=== PATIENT | female | born 1985 | race Caucasian/White ===

== ENCOUNTER 2016-06-21 20:09 | Emergency (ER) | payer BC ==
[2016-06-21] VITALS (7 sets, daily range): RESP 18
[2016-06-21] MEDS ORDERED: LACTATED RINGER'S 1000 ML INJ 1,000 ML IV SCH (20:47)
[2016-06-21] MEDS ORDERED: METOCLOPRAMIDE HCL 10 MG/2 ML VIAL IV PUSH ONE (21:00)
[2016-06-21] MEDS ORDERED: PANTOPRAZOLE SODIUM 40 MG VIAL IV PUSH ONE (21:00)
[2016-06-21] MEDS ORDERED: PROCHLORPERAZINE INJ 10 MG/2 ML VIAL IVS ONE (21:00)
[2016-06-21 22:15] LABS: BICARBONATE 21.5 MEQ/L (21.0-32.0); POTASSIUM 3.7 MEQ/L (3.5-5.1)
[2016-06-21 22:43] LABS: BLOOD, URINE NEG (NEG); COMMENT (UR) CULT NOT INDICATED; CULTURE IF INDICATED CULT NOT INDICATED; GLUCOSE,URINE TRACE mg/dL (NEG); KETONE, URINE 150 mg/dL (NEG); MUCUS URINE MANY /lpf (OCC); NITRITE,URINE NEG (NEG); PH, URINE 6.5 (5.0-8.5); SQUAMOUS EPITHELIAL CELL URINE 6 /hpf (0-5); URINE COLOR YELLOW (YELLW/STRAW)
[2016-06-21] MEDS ORDERED: VIST50CA PO (23:36)
[2016-06-21] MEDS ORDERED: REGL10TA5 PO (23:36)
--- NOTE | 2016-06-21 23:37 | PD ---
HPI Chief Complaint Nausea and vomiting intractable Date Seen: Jun 21, 2016 Travel History International Travel<30 Days: No Contact w/Intl Traveler<30Days: No History of Present Illness HPI This patient is a 30-year-old white female A1 at 8 weeks gestation presents with intractable nausea and vomiting over the last couple of days. She lives in [place] and is [place] [facility] she still with hyperemesis through this already and when she was before she had at all with her and a PICC line and hyperalimentation and and other measures during that . She was in [place] and having trouble with nausea and vomiting and they were going to put a PICC line in her then just recently but she got better with Phenergan suppositories and so may cancel that PICC line and come down here for the races and she gets here she starts to get worse. She denies vaginal bleeding abdominal pain or leakage of fluid. She had an ultrasound done in [place] that showed a viable intrauterine at the 7-8 week range Para: 1 : 3 Miscarriage: 1 History Obstetric History Obstetric History One vaginal delivery with hyperemesis during that and having hyperemesis during this Past Surgical History Narrative Surgical D&C for miscarriage Family History Family History: Negative Social History Alcohol Use: No Tobacco Use: No Substance Abuse: No Allergies-Medications (Allergen,Severity, Reaction): Coded Allergies: Bactrim (Verified Allergy, Unknown, 06/21/16) Penicillin (Verified Allergy, Unknown, 06/21/16) Uncoded Allergies: BACTRUM (Allergy, Unknown, 06/21/16) Review of Systems General / Constitutional: No: Fever, Weight Gain, Chills, Other Eyes: No: Diploplia, Blurred Vision, Visual changes, Pain, Photophobia HENT: No: Headaches, Vertigo, Lightheadedness Cardiovascular: No: Irregular Rhythm, Chest Pain or Discomfort, Palpitations, Tachycardia, Syncope, Varicosities, Edema, Cyanosis Respiratory: No: Cough, Short of Breath, Other Gastrointestinal: Nausea, Vomiting, No: Diarrhea Genitourinary: No: Decreased Urinary Output, Oliguria Musculoskeletal: No: Limited ROM, Weakness, Cramping, Edema, Pain Skin: No Rash, No Itching, No Dryness, No Lumps, No Change in Pigmentation, No Change in Nails, No Alopecia, No Lesions Neurologic: No: Weakness, Dizziness, Syncope, Focal Abnormalities, Coordination Problem, Headache, Slurred Speech, Seizures Psychiatric: No: Depression, Suicidal Ideations, Homicidal Ideation Endocrine: No: Heat Intolerance, Cold Intolerance, Polydipsia, Polyuria, Other Physical Exam Narrative GENERAL thin, well-developed patient. In mild distress from just vomiting so much SKIN: Warm and dry. HEAD: Normocephalic and atraumatic. EYES: No scleral icterus. No injection or drainage. ENT: No nasal drainage noted. Mucous membranes pink. Airway patent. NECK: Supple, trachea midline. No JVD. CARDIOVASCULAR: Regular rate and rhythm without murmurs, gallops, or rubs. RESPIRATORY: Breath sounds equal bilaterally. No accessory muscle use. BREASTS: Bilateral exam showed no masses , no retractions, no nipple discharge. ABDOMEN/GI: Abdomen soft, non-tender, bowel sounds present, no rebound, no guarding Gravid to [8-] weeks size EXTREMITIES: No cyanosis or edema. BACK: Nontender without obvious deformity. No CVA tenderness. NEUROLOGICAL: Awake and alert. Motor and sensory grossly within normal limits. Five out of 5 muscle strength in all muscle groups. Normal speech. Data Data Orders Vital Signs (Adult) .ON ADMISSION (06/21/16 20:47) ^ Labor Status (06/21/16 20:47) Urinalysis - C+S If Indicated (06/21/16 20:47) Basic Metabolic Panel (Bmp) (06/21/16 20:47) Lactated Ringer's 1000 Ml Inj (Lr 1000 M (06/21/16 20:47) Metoclopramide Inj (Reglan Inj) (06/21/16 21:00) Prochlorperazine Inj (Compazine Inj) (06/21/16 21:00) Pantoprazole Inj (Protonix Inj) (06/21/16 21:00) Labs Laboratory Tests Test 06/21/16 06/21/16 21:10 22:00 Sodium Level 138 Potassium Level 3.7 Chloride Level 102 Carbon Dioxide Level 21.5 Anion Gap 15 Blood Urea Nitrogen 12 Creatinine 0.74 Estimat Glomerular Filtration 92 Rate Random Glucose 110 Calcium Level 9.5 Urine Color YELLOW Urine Turbidity HAZY Urine pH 6.5 Urine Specific Merino 1.035 Urine Protein 30 Urine Glucose (UA) TRACE Urine Ketones 150 Urine Occult Blood NEG Urine Nitrite NEG Urine Bilirubin NEG Urine Urobilinogen LESS THAN 2.0 Urine Leukocyte Esterase NEG Urine WBC 4 Urine Squamous Epithelial 6 Cells Urine Mucus MANY Microscopic Urinalysis Comment CULT NOT INDICATED MDM Interpretation(s) This patient is 30-year-old white female A1 8 weeks gestation presents complaining of increasing nausea and vomiting. She is from out [place] town lives in [place] down here just for the auto racing she has been using Phenergan suppositories with a moderate amount of success but in the last day or 2 that's not work will not she's continued to vomit and can't hold anything down. She is having no bleeding or pelvic pain and her ultrasound in [place] was positive for blood intrauterine and a 7--8 week range. Her laboratories within normal limits electrolytes normal urinalysis normal but did have a lot of ketones. She received 2 L IV fluid hydration as well as IV Reglan and Compazine and Protonix she did have improvement in her status with those measures Plan The patient to be offered discharged with Reglan and Vistaril orally 4 times a day with each meal and a bedtime snack. She will also continue using her Phenergan suppositories when necessary., She was given a handout on hyperemesis diet, and she was counseled by me on a bland diet that that would be consistent for hyperemesis care. Also of the patient if she still feels like she is going to throw up too much that she could actually be admitted for just observation for continued IV fluid and repeated IV medications as needed overnight Diagnosis Diagnosis: Primary Impression: Hyperemesis gravidarum with dehydration Disposition: 01 DISCHARGE HOME Condition: Stable Scripts Hydroxyzine Pamoate (Vistaril)50 Mg Cap50 Mg PO QID PRN (NAUSEA) #30 CAP Ref 3 Prov:Zeke Ely II, MD 06/21/16 Metoclopramide (Reglan)10 Mg Tab10 Mg PO QID #120 TAB Ref 2 Prov:Zeke Ely II, MD 06/21/16 Zeke Ely II, MD Jun 21, 2016 23:37
[2016-06-22 00:15] VITALS: RESP 18
== END 2016-06-22 00:40 | disposition home or self-care (01) ==
LOC: HOBED 20:09
DX: O21.1 Hyperemesis gravidarum with metabolic disturbance (principal); E86.0 Dehydration; Z3A.08 8 weeks gestation of pregnancy
CPT/HCPCS: 80048; 81001; 96361; 96374; 96375; 99284; C9113; J0780; J2765; J7120

== ENCOUNTER 2016-06-26 10:36 | Emergency (ER) | payer BC ==
[~2016-06-26 10:36] MED LIST: REGL10TA5 PO; VIST50CA PO
[2016-06-26] MEDS ORDERED: PROCHLORPERAZINE INJ 10 MG/2 ML VIAL IM ONE (11:00)
[2016-06-26] MEDS ORDERED: diphenhydrAMINE HCL 50 MG/ML VIAL IV PUSH ONE (11:00)
[2016-06-26] MEDS ORDERED: LACTATED RINGER'S 1000 ML INJ 1,000 ML IV ONE ×2 (11:00→12:15)
[2016-06-26] MEDS ORDERED: PYRIDOXINE HCL 100 MG/ML VIAL IV ONE (11:00)
[2016-06-26 11:27] LABS: ANION GAP 9 MEQ/L (5-15); AST (GOT) 12 U/L (15-37); BICARBONATE 24.8 MEQ/L (21.0-32.0); BLOOD UREA NITROGEN 10 MG/DL (7-18); CHLORIDE 103 MEQ/L (98-107); GLOMERULAR FILTRATION RATE 95 ML/MIN (>89); POTASSIUM 3.9 MEQ/L (3.5-5.1); SODIUM (NA) 137 MEQ/L (136-145)
--- NOTE | 2016-06-26 11:27 | PD ---
HPI Chief Complaint nausea and vomiting Date Seen: Jun 26, 2016 Time Seen: 11:10 (Efraín Horta MD R2) Travel History International Travel<30 Days: No Contact w/Intl Traveler<30Days: No (Efraín Horta MD) History of Present Illness HPI 30 year old at 8 weeks 4 days gestation with a history of hyperemesis gravidarum reports to the OB ED with nausea and vomiting. At baseline she vomits 3X a day, and is on a regimen of Diclegis, phenergan suppositories, and vistaril. Since 4 AM this morning, frequency of nausea and vomiting has increased. She has eaten one sandwich today and vomited afterwards. She is not able to tolerate much liquids. She feels her mouth is dry and feels lightheaded with standing. She was in the OB ED several days ago with the same complaint and improved after IV fluids and compazine. She reports that Reglan made her feel weird and she does not want to try that medication again. She reports no other complications in this . (Efraín Horta MD) History Past Medical History Narrative Medical Migraines (Efraín Horta MD) Obstetric History Obstetric History at 8/4 weeks Receives care at [facility] in [place], [place] 1.) miscarriage early in 2.) term vaginal delivery, had hyperemesis gravidarum 3.) current (Efraín Horta MD) Past Surgical History Narrative Surgical None (Efraín Horta MD) Family History Narrative Family History Migraines Hyperemesis gravidarum (mom) (Efraín Horta MD) Social History Narrative Social History No smoking, drinking, drug use (Efraín Horta MD) Allergies-Medications (Allergen,Severity, Reaction): Coded Allergies: Bactrim (Verified Allergy, Unknown, 06/21/16) Penicillin (Verified Allergy, Unknown, 06/21/16) Uncoded Allergies: BACTRUM (Allergy, Unknown, 06/21/16) Home Meds Active Scripts Hydroxyzine Pamoate (Vistaril)50 Mg Cap50 Mg PO QID PRN (NAUSEA) #30 CAP Ref 3 Prov:Zeke Ely II, MD 06/21/16 Metoclopramide (Reglan)10 Mg Tab10 Mg PO QID #120 TAB Ref 2 Prov:Zeke Ely II, MD 06/21/16 Review of Systems Except as stated in HPI: all other systems reviewed are Neg (Efraín Horta MD R2) Physical Exam Narrative GENERAL: Well-nourished, well-developed patient. SKIN: Warm and dry. HEAD: Normocephalic and atraumatic. EYES: No scleral icterus. No injection or drainage. ENT: No nasal drainage noted. Mucous membranes pink. Airway patent. Dry mucous membranes. NECK: Supple, trachea midline. No JVD. CARDIOVASCULAR: Regular rate and rhythm without murmurs, gallops, or rubs. Normal capillary refill. RESPIRATORY: Breath sounds equal bilaterally. No accessory muscle use. ABDOMEN/GI: Abdomen soft, non-tender, bowel sounds present, no rebound, no guarding EXTREMITIES: No cyanosis or edema. BACK: Nontender without obvious deformity. No CVA tenderness. NEUROLOGICAL: Awake and alert. Motor and sensory grossly within normal limits. Five out of 5 muscle strength in all muscle groups. Normal speech. (Efraín Horta MD R2) Data Data Vital Signs Reviewed: Yes Orders Prochlorperazine Inj (Compazine Inj) (06/26/16 11:00) Diphenhydramine Inj (Benadryl Inj) (06/26/16 11:00) Pyridoxine Inj (Vitamin B6 Inj) (06/26/16 11:00) Lactated Ringer's 1000 Ml Inj (Lr 1000 M (06/26/16 11:00) Comprehensive Metabolic Panel (06/26/16 10:55) (Efraín Horta MD R2) Vital Signs Reviewed: Yes Labs Laboratory Tests Test 06/26/16 10:50 White Blood Count 8.4 TH/MM3 Red Blood Count 4.75 MIL/MM3 Hemoglobin 15.3 GM/DL Hematocrit 42.6 % Mean Corpuscular Volume 89.6 FL Mean Corpuscular Hemoglobin 32.3 PG Mean Corpuscular Hemoglobin 36.0 % Concent Red Cell Distribution Width 12.0 % Platelet Count 261 TH/MM3 Mean Platelet Volume 9.1 FL Sodium Level 137 MEQ/L Potassium Level 3.9 MEQ/L Chloride Level 103 MEQ/L Carbon Dioxide Level 24.8 MEQ/L Anion Gap 9 MEQ/L Blood Urea Nitrogen 10 MG/DL Creatinine 0.72 MG/DL Estimat Glomerular Filtration 95 ML/MIN Rate Random Glucose 95 MG/DL Calcium Level 9.5 MG/DL Total Bilirubin 0.8 MG/DL Aspartate Amino Transf 12 U/L (AST/SGOT) Alanine Aminotransferase 20 U/L (ALT/SGPT) Alkaline Phosphatase 50 U/L Total Protein 8.2 GM/DL Albumin 4.2 GM/DL Lipase 127 U/L (Lion Prasad MD) [facility] Medical Record Reviewed: Yes Interpretation(s) 30 year old with hyperemesis gravidarum presents with nausea/vomiting, dehydration. - One liter bolus LR - CBC, CMP, lipase - Compazine, pyridoxine, and benadryl for symptom relief. - Discuss trigger avoidance. Discussed with Dr. Prasad Narrative Course / MDM 30 year old with hyperemesis gravidarum presents with nausea/vomiting, dehydration. - Symptoms improved after medications and IV fluids. - Discussed trigger avoidance. - Nutritional status, appropriate weight gain needs to be followed closely by OB. (Efraín Horta MD R2) Narrative Course / MDM 30 y/o with IUP at 8.4 wks with hyperemesis feeling better s/p IV fluids and IV anti-nausea medications Plan d/c home continue rest, hydration, BRAT diet, anti-nausea medications (Lion Prasad MD) Diagnosis Diagnosis: Primary Impression: Hyperemesis gravidarum with dehydration Disposition: 01 DISCHARGE HOME Condition: Stable Attestation The exam, history, and the medical decision-making described in the above note were completed with the assistance of the resident provider. I reviewed and agree with the findings presented. I attest that I had a [id number] encounter with the patient on the same day, and personally performed and documented my assessment and findings in the medical record. (Lion Prasad MD) Efraín Horta MD R2 Jun 26, 2016 11:27 Lion Prasad MD Jun 26, 2016 13:21
[2016-06-26 11:30] LABS: ALKALINE PHOSPHATASE 50 U/L (45-117); ALT (GPT) 20 U/L (10-53); TOTAL BILIRUBIN ADULT 0.8 MG/DL (0.2-1.0)
[2016-06-26 11:37] LABS: HEMATOCRIT 42.6 % (35.0-46.0); MEAN CELL VOLUME 89.6 FL (80.0-100.0); MEAN CORPUSCULAR HEMOGLOBIN 32.3 PG (27.0-34.0); PLATELET COUNT 261 TH/MM3 (150-450); RED BLOOD COUNT 4.75 MIL/MM3 (4.00-5.30); WHITE BLOOD COUNT 8.4 TH/MM3 (4.0-11.0)
[2016-06-26] MEDS ORDERED: PROCHLORPERAZINE INJ 10 MG/2 ML VIAL IVS ONE (11:45)
[2016-06-26 11:46] LABS: REVIEW FLAG FINAL
== END 2016-06-26 13:26 | disposition home or self-care (01) ==
LOC: HOBED 10:36
DX: O21.0 Mild hyperemesis gravidarum (principal); E86.0 Dehydration; R42 Dizziness and giddiness; R11.2 Nausea with vomiting, unspecified; Z3A.08 8 weeks gestation of pregnancy
CPT/HCPCS: 80053; 83690; 85027; 96361; 96374; 99284; J0780; J1200; J3415; J7120

== ENCOUNTER 2016-06-28 08:25 | Emergency (ER) | payer BC ==
[2016-06-28] MEDS ORDERED: ONDANSETRON HCL 4 MG/2 ML VIAL IV PUSH PRN (09:00)
[2016-06-28] MEDS ORDERED: PROCHLORPERAZINE INJ 10 MG/2 ML VIAL IVS ONE (09:00)
--- NOTE | 2016-06-28 09:00 | PD ---
HPI Chief Complaint nausea, vomiting Date Seen: Jun 28, 2016 Time Seen: 09:00 (Efraín Horta MD R2) Travel History International Travel<30 Days: No Contact w/Intl Traveler<30Days: No (Efraín Horta MD) History of Present Illness HPI 30 year old at 8 weeks 6 days gestation with a history of hyperemesis gravidarum reports to the OB ED with nausea and vomiting. She was last here two days ago for the same issue. At baseline she vomits 3X a day, and is on a regimen of Diclegis, phenergan suppositories, and vistaril. Since yesterday she has vomited 10+ times (with the later episodes being mostly dry heaving). She is not tolerating much oral intake. She feels her mouth is dry and feels lightheaded with standing. She reports that Reglan makes her feel weird and she does not want to try that medication again. She reports ondansetron also does not agree with her, making her have abdominal pain and constipation. She reports no other complications in this . She has lost 14 lbs in this due to hyperemesis. (Efraín Horta MD R2) History Past Medical History Narrative Medical Migraines (Efraín Horta MD) Obstetric History Obstetric History at 8/4 weeks Receives care at [facility] in [place], [place] 1.) miscarriage early in 2.) term vaginal delivery, had hyperemesis gravidarum 3.) current (Efraín Horta MD R2) Past Surgical History Surgical History: No Previous Surgery (Efraín Horta MD) Family History Narrative Family History Migraines Hyperemesis gravidarum (mom) (Efraín Horta MD R2) Social History Narrative Social History No smoking, drinking, drug use (Efraín Horta MD R2) Allergies-Medications (Allergen,Severity, Reaction): Coded Allergies: Bactrim (Verified Allergy, Unknown, 06/21/16) Penicillin (Verified Allergy, Unknown, 06/21/16) Uncoded Allergies: BACTRUM (Allergy, Unknown, 06/21/16) Home Meds Active Scripts Hydroxyzine Pamoate (Vistaril)50 Mg Cap50 Mg PO QID PRN (NAUSEA) #30 CAP Ref 3 Prov:Zeke Ely II, MD 06/21/16 Metoclopramide (Reglan)10 Mg Tab10 Mg PO QID #120 TAB Ref 2 Prov:Zeke Ely II, MD 06/21/16 Review of Systems Except as stated in HPI: all other systems reviewed are Neg (Efraín Horta MD R2) Physical Exam Narrative GENERAL: Well-nourished, well-developed patient. SKIN: Warm and dry. HEAD: Normocephalic and atraumatic. EYES: No scleral icterus. No injection or drainage. ENT: No nasal drainage noted. Mucous membranes pink. Airway patent. Dry mucous membranes. NECK: Supple, trachea midline. No JVD. CARDIOVASCULAR: Regular rate and rhythm without murmurs, gallops, or rubs. Normal capillary refill. RESPIRATORY: Breath sounds equal bilaterally. No accessory muscle use. ABDOMEN/GI: Abdomen soft, non-tender, bowel sounds present, no rebound, no guarding EXTREMITIES: No cyanosis or edema. BACK: Nontender without obvious deformity. No CVA tenderness. NEUROLOGICAL: Awake and alert. Motor and sensory grossly within normal limits. Five out of 5 muscle strength in all muscle groups. Normal speech. (Efraín Horta MD R2) Data Data Vital Signs Reviewed: Yes (Efraín Horta MD R2) [facility] Medical Record Reviewed: Yes Interpretation(s) 30 year old with hyperemesis gravidarum presents with nausea/vomiting, dehydration, weight loss. - One liter bolus LR, required one more liter after first. - Phenergan, Compazine, Protonix - BMP, UA - Mild hypokalemia, replace with 20 meQ potassium - Discuss trigger avoidance. Narrative Course / MDM 30 year old with hyperemesis gravidarum presents with nausea/vomiting, dehydration. - Symptoms improved after medications and IV fluids. - Discussed trigger avoidance. - Continue medication regimen at home. - Nutritional status, appropriate weight gain needs to be followed closely by OB. - Reschedule appointment for PICC line for nutritional supplementation due to 14 lb weight loss in . (Efraín Horta MD R2) Diagnosis Diagnosis: Primary Impression: Hyperemesis gravidarum with dehydration Disposition: DISCHARGE HOME Condition: Fair Attestation 30-year-old who is at 8-9 weeks gestation admitted for nausea vomiting. She has a history of significant hyperemesis gravidarum this and this was also present her first . Patient is traveling back to her home after the visit today and she is already called her OB provider for placement of a PICC line as soon as possible. I've offered the PICC line placement while she is here but she is declined. I discussed in detail the need for continued hydration and possible total parenteral nutrition due to her weight loss of greater than 10%. Patient was seen and examined. (Ritika Russell MD) Efraín Horta MD R2 Jun 28, 2016 09:00 Ritika Russell MD Jun 28, 2016 09:42
[2016-06-28] MEDS ORDERED: LACTATED RINGER'S 1000 ML INJ 1,000 ML IV ONE ×2 (09:15→10:15)
[2016-06-28] MEDS: PANTOPRAZOLE SODIUM 40 MG VIAL IV PUSH SCH ×2 (09:15→10:39)
[2016-06-28] MEDS ORDERED: PROMETHAZINE INJ 25 MG/ML VIAL IM ONE (09:15)
[2016-06-28 09:42] LABS: BICARBONATE 20.2 MEQ/L (21.0-32.0); POTASSIUM 3.4 MEQ/L (3.5-5.1)
[2016-06-28] MEDS ORDERED: POTASSIUM CHLORIDE 20 MEQ CONTROLLED RELEASE TAB PO ONE (10:30)
[2016-06-28] MEDS ORDERED: POTASSIUM CHLOR 10 MEQ PREMIX 100 ML IV ONE (12:00)
== END 2016-06-28 10:58 | disposition home or self-care (01) ==
LOC: HOBED 08:25
DX: O21.1 Hyperemesis gravidarum with metabolic disturbance (principal); Z3A.08 8 weeks gestation of pregnancy
CPT/HCPCS: 36415; 80048; 96361; 96372; 96374; 96375; 99284; C9113; J0780; J2550; J7120